=== PATIENT | female | born 1980 | race Caucasian/White ===

== ENCOUNTER 2017-11-29 11:03 | Outpatient (CLI) | payer OTHER | END 2017-11-29 13:55 | disposition home or self-care (01) | LOC: OBT 11:03 → L-D 11:03 → OBT 13:55 | DX: O9A.212 Injury, poisoning and certain other consequences of external causes complicating pregnancy, second trimester (principal); Z3A.27 27 weeks gestation of pregnancy; W19.XXXA Unspecified fall, initial encounter | CPT/HCPCS: 36415; 76817; 76818; 85460; 86850; 86900; 86901 ==